=== PATIENT | male | born 1960 | race Caucasian/White ===

== ENCOUNTER 2023-05-25 06:18 | Outpatient (CLI) | payer MEDICARE, OTHER ==
--- NOTE | 2023-05-25 12:03 | Ultrasound Report ---
PROCEDURE: Aorta Screening INDICATIONS: ESSENTIAL (PRIMARY) HYPERTENSION TECHNIQUE: Real time scanning was performed of the aorta and iliac arteries, with image documentatio n. COMPARISON: None. FINDINGS: Aorta: Proximal aortic diameter measures 2.2 x 2.1 cm. Mid-aorta measures 1.9 x 1.9 cm. Distal aor tic diameter is 1.7 x 1.5 cm. Iliac arteries: Right common iliac artery measures 1.1 x 1.0 cm. Left common iliac artery measures 1.1 x 1.1 cm. IMPRESSION: No abdominal aortic aneurysm. Recommended intervals for follow-up imaging of ectatic aortas and abdominal aortic aneurysms, per ACR consensus guidelines: 2.5-2.9 cm: 5 years 3.0-3.4 cm: 3 years 3.5-3.9 cm: 2 years 4.0-4.4 cm: 1 year 4.5-4.9 cm: 6 months + endovascular referral 5.0-5.5 cm: 3-6 months + endovascular referral Reviewed by: Sundeep Gracia MD on 05/25/2023 12:02 PM PDT Approved by: Sundeep Gracia MD on 05/25/2023 12:02 PM PDT Station ID: [id number]
== END 2023-05-25 06:19 | disposition home or self-care (01) ==
LOC: DI 06:18
PROVIDERS: ATTEND Internal Medicine
DX: I10 Essential (primary) hypertension (principal); Z13.6 Encounter for screening for cardiovascular disorders

== ENCOUNTER 2024-02-27 16:38 | Outpatient (CLI) | payer MEDICARE, OTHER ==
[2024-02-27 16:51] LABS: ABSOLUTE RETICS # AUTO 0.036 10^6/uL (0.020-0.110); BASOPHILS % (AUTO) 0.2 %; EOSINOPHILS # (AUTO) 0.2 10^3/uL (0.0-0.7); EOSINOPHILS % (AUTO) 4.3 %; HCT - HEMATOCRIT 37.8 % (42.0-52.0); HGB - HEMOGLOBIN 12.5 g/dL (14.0-18.0); LYMPHOCYTES # (AUTO) 1.1 10^3/uL (1.5-3.5); LYMPHOCYTES % (AUTO) 21.2 %; MEAN CORPUSCULAR HGB CONC 33.1 g/dL (32.0-36.0); MEAN CORPUSCULAR VOLUME 93.8 fL (80.0-94.0); MEAN PLATELET VOLUME 9.5 fL (7.4-11.4); MONOCYTES # (AUTO) 0.6 10^3/uL (0.0-1.0); MONOCYTES % (AUTO) 10.6 %; NEUTROPHILS # (AUTO) 3.4 10^3/uL (1.5-6.6); NEUTROPHILS % (AUTO) 63.5 %; PLT - PLATELET COUNT 195 10^3/uL (130-450); RED BLOOD COUNT 4.03 10^6/uL (4.70-6.10); RED CELL DISTRIBUTION WIDTH 13.9 % (12.0-15.0); RETICULOCYTE COUNT % (AUTO) 0.89 % (0.5-2.3); WHITE BLOOD COUNT 5.3 x10^3/uL (4.8-10.8)
[2024-02-27 17:08] LABS: ALBUMIN 4.1 g/dL (3.2-5.5); ALBUMIN/GLOBULIN RATIO 1.7 (1.0-2.2); BILIRUBIN,TOTAL 0.5 mg/dL (0.2-1.0); CALCIUM 9.1 mg/dL (8.5-10.3); CREATININE 1.2 mg/dL (0.6-1.3); POTASSIUM 3.9 mmol/L (3.5-4.5); TOTAL PROTEIN 6.5 g/dL (6.4-8.9)
[2024-02-27 17:41] LABS: FERRITIN 217.3 ng/mL (23.9-336.2)
== END 2024-02-27 16:39 | disposition home or self-care (01) ==
LOC: LAB 16:38
PROVIDERS: ATTEND Internal Medicine Hematology & Oncology
DX: D64.9 Anemia, unspecified (principal)
CPT/HCPCS: 36415; 80053; 82607; 82728; 82746; 83540; 83615; 84466; 85025; 85045